=== PATIENT | female | born 1965 | race Caucasian/White ===

== ENCOUNTER 2022-11-19 12:39 | Outpatient (CLI) | payer OTHER, SELFPAY ==
[2022-11-19 14:16] LABS: Basophils Percent Auto 0.5 % (0.2-1.2); Eosinophils Absolute Auto 0.1 K/mm3 (0-0.3); Eosinophils Percent Auto 1.7 % (0-4.4); Hematocrit 43.9 % (37.0-47.0); Hemoglobin 14.4 g/dL (12.0-15.0); Immature Granulocyte Absolute 0.03 K/mm3 (0.00-0.031); Immature Granulocyte Percent A 0.4 % (0-0.5); Lymphocytes Absolute Auto 1.03 K/mm3 (0.9-3.2); Lymphocytes Percent Auto 13.4 % (18.3-44.2); Mean Corpuscular HGB Conc 32.8 g/dl (32-36); Mean Corpuscular Hemoglobin 30.3 pg (26-34); Mean Corpuscular Volume 92.2 fl (80-100); Mean Platelet Volume 12.4 fl (7.4-10.4); Monocytes Absolute Auto 0.5 K/mm3 (0.1-0.6); Monocytes Percent Auto 6.6 % (2.6-8.5); Neutrophils Absolute Auto 5.9 K/mm3 (1.3-6.7); Neutrophils Percent Auto 77.4 % (45.5-73.1); Platelet Count Result 182 k/mm3 (150-375); Red Blood Count 4.76 M/mm3 (4.2-5.4); Red Cell Distribution Width 13.2 % (11.5-14.5); White Blood Count 7.7 K/mm3 (4.5-10.0)
[2022-11-19 14:20] LABS: Appearance Urine Clear (Clear); Bacteria Urine None Seen /hpf; Bilirubin Urine Negative (Negative); Blood Urine Negative (Negative); Color Urine Yellow (Yellow); Glucose Urine UA Negative (Negative); Ketones Urine Negative (Negative); Leukocyte Esterase Ur 2+ LEU/UL (NEGATIVE); Nitrate Urine Negative (Negative); Non Pathogenic Casts 0-2; Protein Urine Negative (Negative); RBC Urine 0-2 /hpf (0-2); Specific Grav Ur 1.016 (1.001-1.035); Squamous Epithelial Cell Urine Occasional /hpf (Few); Urobilinogen Urine 0.2 mg/dL (<2.0)
[2022-11-19 14:23] LABS: Add Urine Microscopic? YES
[2022-11-19 14:26] LABS: Alanine Aminotransferase 38 U/L (6-35); Albumin Level 4.3 g/dL (3.5-5.1); Alkaline Phosphatase 75 U/L (38-126); Anion Gap 9 mmol/L (8-16); Aspartate Amino Transferase 31 U/L (14-36); Bilirubin,Total 0.5 mg/dL (0.2-1.3); Blood Urea Nitrogen 15 mg/dL (7-17); Calcium 8.9 mg/dL (8.4-10.2); Carbon Dioxide 26 mmol/L (22-30); Chloride 107 mmol/L (98-107); Cholesterol 190 mg/dL (0-200); Estimated Glomerular Filt Rate > 60; Glucose 106 mg/dL (65-110); HDL Direct 49 mg/dL; Potassium 3.8 mmol/L (3.4-5.0); Sodium 142 mmol/L (137-145); Triglycerides 149 mg/dL (<150)
[2022-11-19 14:37] LABS: LDL Cholesterol Direct 106 mg/dL
== END 2022-11-19 12:40 | disposition home or self-care (01) ==
LOC: ANHLAB 12:40
PROVIDERS: PCP Nurse Practitioner Family; Visit Provider Nurse Practitioner Family
DX: Z00.00 Encounter for general adult medical examination without abnormal findings (principal); Z13.0 Encounter for screening for diseases of the blood and blood-forming organs and certain disorders involving the immune mechanism; Z13.6 Encounter for screening for cardiovascular disorders; Z13.29 Encounter for screening for other suspected endocrine disorder
CPT/HCPCS: 36415; 80053; 80061; 81001; 84443; 85025

== ENCOUNTER 2024-06-30 13:44 | Outpatient (CLI) | payer MEDICARE, SELFPAY ==
[2024-06-30 14:33] LABS: Basophils Absolute Auto 0.1 K/mm3 (0.0-0.1); Basophils Percent Auto 0.6 % (0.2-1.2); Eosinophils Absolute Auto 0.3 K/mm3 (0-0.3); Eosinophils Percent Auto 3.3 % (0-4.4); Hematocrit 44.3 % (37.0-47.0); Hemoglobin 14.1 g/dL (12.0-15.0); Immature Granulocyte Absolute 0.03 K/mm3 (0.00-0.031); Immature Granulocyte Percent A 0.3 % (0-0.5); Lymphocytes Absolute Auto 1.78 K/mm3 (0.9-3.2); Lymphocytes Percent Auto 19.2 % (18.3-44.2); Mean Corpuscular HGB Conc 31.8 g/dl (32-36); Mean Corpuscular Hemoglobin 29.8 pg (26-34); Mean Corpuscular Volume 93.7 fl (80-100); Mean Platelet Volume 11.7 fl (7.4-10.4); Monocytes Absolute Auto 0.8 K/mm3 (0.1-0.6); Monocytes Percent Auto 8.6 % (2.6-8.5); Neutrophils Absolute Auto 6.3 K/mm3 (1.3-6.7); Platelet Count Result 171 k/mm3 (150-375); Red Blood Count 4.73 M/mm3 (4.2-5.4); Red Cell Distribution Width 13.4 % (11.5-14.5); White Blood Count 9.3 K/mm3 (4.5-10.0)
[2024-06-30 14:43] LABS: Add Urine Microscopic? YES; Appearance Urine Clear (Clear); Bacteria Urine None Seen /hpf; Bilirubin Urine Negative (Negative); Blood Urine Negative (Negative); Color Urine Yellow (Yellow); Glucose Urine UA Negative (Negative); Ketones Urine Negative (Negative); Leukocyte Esterase Ur 2+ LEU/UL (Negative); Nitrate Urine Negative (Negative); Non Pathogenic Casts 0-2; Protein Urine Negative (Negative); RBC Urine 0-2 /hpf (0-2); Specific Grav Ur 1.019 (1.001-1.035); Squamous Epithelial Cell Urine Few /hpf (Few); Urobilinogen Urine 0.2 mg/dL (<2.0)
[2024-06-30 14:47] LABS: Alanine Aminotransferase 48 U/L (6-35); Albumin Level 4.5 g/dL (3.5-5.1); Alkaline Phosphatase 87 U/L (38-126); Anion Gap 7 mmol/L (4-12); Aspartate Amino Transferase 34 U/L (14-36); Blood Urea Nitrogen 12 mg/dL (7-17); Calcium 9.2 mg/dL (8.4-10.2); Carbon Dioxide 28 mmol/L (22-30); Chloride 107 mmol/L (98-107); Cholesterol 210 mg/dL (0-200); Estimated Glomerular Filt Rate > 60; Glucose 104 mg/dL (65-110); HDL Direct 51 mg/dL; Potassium 4.1 mmol/L (3.4-5.0); Sodium 142 mmol/L (137-145); Triglycerides 114 mg/dL (<150)
[2024-06-30 14:58] LABS: LDL Cholesterol Direct 120 mg/dL
--- OUTSIDE RECORDS SUMMARY | 2024-06-30 15:21 | XMS_ITS | Patient Health Record ---
Author Organization [facility] Address [address] [facility] [facility] [place] [address] Care Team Providers Care Net Architect Name Role Phone Cayden Jett Unavailable [phone] ALLERGIES No Known Allergies REASON FOR REFERRAL No Information MEDICATIONS Medication SIG (Take, Route, Fr equency, Duration) Notes Start Date End Date Status Nasacort AQ Active Advair HFA Active Ibuprofen Active rOPINIRole HCl Activ e SOCIAL HISTORY Tobacco Use: Social History Observation Description Date Details (start date - stop date) Never Smoker NA - NA Sex Assigned At : Social History Observation Description Sex Assigned At Unknown Tobacco Use/Smoking Question Answer Notes Are you a nonsmoker PROBLEMS Problem Type ICD Code Onset Dates Problem Status W/U Status Risk SNOMED Code Notes Problem Radiculopathy, cervical region (M54.12) Active confirmed 39329150 Problem Cervical spondylosis with radiculopathy (M47.22) Active confirmed 564823155 PLAN OF TREATMENT No Information MEDICATIONS ADMINISTERED Medication Instructions Date of Administration Dosage Notes LEFT C6 SNRI 11/04/2020 MEDICAL (GENERAL) HISTORY Medical History History ICD Code migraine headaches irritable bowel syndrome esophageal reflux chronic bronchitis Surgical History Surgery Date(Month/Year) 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
--- OUTSIDE RECORDS SUMMARY | 2024-06-30 15:21 | XMS_ITS | Encounter Summary ---
Author Organization [facility] Address [facility] [place] [address] Care Team Providers Care Director Case Name Role Phone Calixto Pino MD Primary Care Provider + [phone] Maximo Cancino DO Primary Care Provider [phone] Cole Trejo MD Unavailable Quentin Avendaño MD Primary Care Provider [phone] Encounter Details Date Type Department Care Team (Late st Contact Info) Description 08/30/2018 Abstract [facility] [address] [place] [address] , Generic Conversion, Social History Tobacco Use Types Packs/Day Years Used Date Smoking Tobacco: Never Assessed AUDIT-C Answer Date Recorded Frequency of Alcohol Consumption Never 08/31/2018 Average Number of Drinks Not on file 019 Frequency of Binge Drinking Not on file 11/2018 Comments No Sex and Gender Information Value Date Recorded Sex Assigned at Not on file Legal Sex Female 4:34 PM CDT Gender Identity Not on file Sexual Orientation Not on file documented as of this encounter Functional Status documented as of this encounter Mental Status * Question Answer Entry Date Author Status Because of a physical, mental, or emotional condition, do you have serious difficulty concentrating, remembering, or making decisions? No 09/01/2018 3:46 AM CDT Tahira Eagle RN A ctive documented in this encounter Plan of Treatment Not on file documented as of this encounter Visit Diagnoses Not on filedocumented in this encounter Additional Health Concerns Infection Onset Date Last Indicated Resolved Time COVID-19 Rule Out 05/22/2020 05/22/2020 05/23/2020 3:32 PM NET DEVELOPER COVID-19 Rule Out 03/22/2024 03/22/2024 03/22/2024 9:11 AM NET DEVELOPER documented as of this encounter Care Teams Director Case Relationship Specialty Start Date End Date Calixto Pino MD PCP - General 03/17/16 08/30/18 Maximo Cancino DO PCP - General FAMILY PRACTICE 08/31/18 05/11/23 Quentin Avendaño MD [address] [place] [address] [address] [place] [address] PCP - General 05/12/23 Cole Trejo MD [address] [place] [address] [place] [id number] OB[place] 11/01/19 documented as of this encounter
--- OUTSIDE RECORDS SUMMARY | 2024-06-30 15:21 | XMS_ITS | Clinical Summary ---
Author Organization [facility] Address [address] [place] [address] Care Team Providers Care Ammunition Specialist Name Role Phone Cole Trejo MD Unavailable Quentin Avendaño MD Primary Care Provider [phone] Allergies Active Allergy Reactions Criticality Noted Date Comments Latex Rash Medium 01/11/2020 RASH Medications acetaminophen 325 MG tablet Take 1,300 mg by mouth 2 (two) times daily as needed for Pain. Active loperamide 2 MG capsule Take 2 mg by mouth 4 (four) times daily as needed for Diarrhea. Active vitamin C 500 MG tablet Take 500 mg by mouth daily. Active cholecalciferol 5000 units Tab Take 10,000 Units by mouth daily. Active betamethasone dipropionate 0.05 % cream 0.05 % daily. Active WIXELA INHUB 250-50 MCG/ACT inhalerIndications :Pulmonary emphysema, unspecified emphysema type ([facility]) INHALE 1 PUFF BY MOUTH INTO THE LUNGS TWICE DAILY 60 each 6 2 Active PANTOPRAZOLE EC 40 MG tabletIndications: Chronic GERD TAKE 1 TABLET(40 MG) BY MOUTH DAILY 90 tablet 2 2 Active albuterol sulfate HFA 108 (90 Base) MCG/ACT inhalerIndications :COPD (chronic obstructive pulmonary disease) ([facility]) 1-2 puffs q 4-6 hr prn 18 g 1 3 Active ROPINIROLE HYDROCHLORIDE 3 MG TabIndications:[facility] care maintenance Take 1 tablet by mouth nightly at bedtime. at bedtime 30 tablet 3 Active dextromethorphan-g uaiFENesin ER (MUCINEX DM) 30-600 MG TABLET SR 12 HR 12 hr tablet Take 1 tablet by mouth every 12 (twelve) hours as needed. 28 tablet 4 Active methylPREDNISolone , PINA, (MEDROL DOSEPAK) 4 MG tablet Take 1 tablet (4 mg total) by mouth daily. 6 TABLETS ON DAY ONE, 5 TABLETS DAY TWO, 4 TABLETS DAY THREE, 3 TABLETS DAY FOUR, 2 TABLETS DAY FIVE, AND 1 TABLET DAY SIX 1 each 4 Active azithromycin (ZITHROMAX) 250 MG tablet 500 mg on day 1 then 250 mg daily 6 tablet 4 Active Active Problems Problem Noted Date Diagnosed Date Dupuytren contracture 07/14/2021 Loud snoring 07/14/2021 Daytime somnolence 07/14/2021 Migraine without aura and wi thout status migrainosus, not intractable 07/14/2021 Right ovarian cyst 01/11/2020 COPD exacerbation ([facility]) 09/01/2018 Anxiety 04/29/2017 Chronic GERD 04/29/2017 COPD (chronic obstructive pu lmonary disease) ([facility]) 04/29/2017 RLS (restless legs syndrome) 04/29/2017 Sprain of finger 07/27/2010 Resolved Problems Problem Noted Date Diagnosed Date Resolved Date Routine physical examination 05/16/2020 05/23/2020 Family History Medical History Relation Comments Cancer Brother Colon Cancer Father Breast Cancer Mother Cancer Mother Relation Status Comments Brother Father Mother Social History Tobacco Use Types Packs/Day Years Used Date Smoking Tobacco: Former Cigarettes 1.5 30 1 979 - 2009 Smokeless Tobacco: Never Alcohol Use Standard Drinks/Week Comments No 0 (1 standard drink = 0.6 oz pur e alcohol) AUDIT-C Answer Date Recorded Frequency of Alcohol Consumption Never 08/31/2018 Average Number of Drinks Not on file 019 Frequency of Binge Drinking Not on file 11/2018 PHQ-2 Answer Date Recorded PHQ-2 Score - If the patient scores above 3, please move on to questions 3-9 0 07/14/2021 Comments No Sex and Gender Information Value Date Recorded Sex Assigned at Not on file Legal Sex Female 4:34 PM CDT Gender Identity Not on file Sexual Orientation Not on file Occupation Industry Job Start Date Job End Date [employer] Not on file Not on file Not on file Last Filed Vital Signs Vital Sign Reading Time Taken Comments Blood Pressure 108/62 03/22/2024 8:47 AM WAIST PRESSER Pulse 88 03/22/2024 8:47 AM WAIST PRESSER Temperature 36.9 C (98.5 F) 03/22/2024 8:45 AM WAIST PRESSER Respiratory Rate 18 03/22/2024 8:45 AM WAIST PRESSER Oxygen Saturation 93% 03/22/2024 8:47 AM WAIST PRESSER Inhaled Oxygen Concentration - - Weight 78.5 kg (173 lb) 03/22/2024 8:45 AM WAIST PRESSER Height 160 cm (5' 3 ) 03/22/2024 8:45 AM WAIST PRESSER Body Mass Index 30.65 03/22/2024 8:45 AM WAIST PRESSER Plan of Treatment Health Maintenance Due Date Last Done Comments Cervical Cancer Screening Pap Smear (Age 30 to 64) Every 3 Years 1966 Pneumococcal Vaccine: Pediatrics (0 to 5 Years) and At-Risk Patients (6 to 64 Years) (1 of 2 - PCV) 1972 Hepatitis C 1984 DTaP, Tdap and Td Vaccines (1 - Tdap) 1985 Hepatitis B Vaccines (1 of 3 - 19+ 3-dose series) 1985 Cervical Cancer Screening Pap with HPV Testing (Age 30 to 64) Every 5 Years 1996 Cervical Cancer Screening with HPV 1996 Zoster Vaccines (1 of 2) 2016 Annual Physical 07/14/2022 07/14/2021, 04/26, 05/11/2019 COVID-19 Vaccine ( season) 2023 11/19/2020, 10/22/2020 Mammogram Screening 05/13/2025 05/13/2023, 01/17/2021, 09/21/2019, Additional history exists Colorectal Cancer Screening Colonoscopy (10 Years) 05/25/2030 05/25/2020, 05/25/2020, 03/25/2013 Meningococcal B Vaccine Aged Out No l onger eligible based on patient's age to complete this topic Meningococcal Vaccine Aged Out No rochelle deya eligible based on patient's age to complete this topic RSV Immunizations Under 20 Months Aged Out No longer eligible based on patient's age to complete this topic Procedures Procedure Name Priority Date/Time Associated Diagnosis Comments MG SCREENING W JOSELIN LOVE DIGI Routine 05/13/2023 2:16 PM WAIST PRESSER Visit for screening mammogram COLONOSCOPY Routine 05/25/2020 8:19 AM WAIST PRESSER from Last 3 Months or Most Recently Relevant to Health Maintenance Results * MG SCREENING W JOSELIN LOVE DIGI (05/13/2023 2:16 PM WAIST PRESSER) Anatomical Region Laterality Modality Breast Bilateral Mammography 05/13/2023 2:20 PM WAIST PRESSER Narrative 05/13/2023 2:22 PM WAIST PRESSER Examination: Digital bilateral screening mammogram with 3D Tomosynthesis Exam Date/Time: 05/13/2023 1:57 PM Reason For Exam: annual 2 prior benign biopsies of both breasts and 2010. Breast cancer in mother at age 49. No personal history of breast cancer. No current complaints. Comparison: Mammograms from 01/17/2021 09/21/2019 05/24/2018 Technique: Digital screening mammography of both breasts was performed in addition to 3-D Tomosynthesis technique. This study was read with the assistance of a computer-aided detection system. Tissue density: There are scattered areas of fibroglandular density. Findings: Biopsy marker on the right. Overall parenchymal pattern unchanged from prior studies. There is no new focal asymmetry, dominant mass lesion, area of skin thickening, or cluster of suspicious appearing calcifications in either breast to suggest malignancy. ===== IMPRESSION: ===== 1. Stable mammographic appearance with no new findings to suggest malignancy in either breast. Assessment: ACR BI-RADS 2 - BENIGN FINDING(S) Recommendation: 1:Routine Screening Bilateral Comments: Ordered By: SUSAN STOKES Interpreted By: Joselito Nair MD, 05/13/2023 2:20 PM Susan Stokes APNP MAMMO Final Result * Colonoscopy (05/25/2020 8:19 AM WAIST PRESSER) Narrative Pal Hatfield MD - 05/25/2020 8:19 AM WAIST PRESSER Pal Hatfield MD 05/25/2020 9:42 AM PAL HATFIELD MD, FACG, FACP COLONOSCOPY INDICATION: Screening for colon cancer/Family history of colon cancer. POST-OP: Normal. SEDATION: Per Anesthesia PREP: Good. BOTTLE CAPPER: Dr. Do Waters With the patient in the left lateral decubitus position, the Olympus [id number] colonoscope was introduced into the rectum and advanced easily to the cecum identified by ileocecal valve, appendiceal orifice and cecal strap. Careful inspection of the mucosa was made upon insertion and withdrawal of the endoscope. FINDINGS: Cecum, ascending colon, transverse colon, descending colon, sigmoid colon and rectum including retroflexion normal. No masses, polyps, AVMs, colitis or diverticulosis seen. No complications, blood loss or implants. ASSESSMENT AND PLAN: Screening for colon cancer/Family history of colon cancer: - Normal colonoscopy - I will place in our recall for repeat colonoscopy in 5 years Thank you for allowing me to care for your patient. She will follow-up with Dr. Cancino as needed. Pal Hatfield M.D. Pal Hatfield MD GI PROCEDURE ORDERABLES Fin al Result from Last 3 Months or Most Recently Relevant to Health Maintenance Insurance [employer] Advance Directives * Full Code (Latest Code Status on File) Date Activated Date Inactivated Comments 09/01/2018 1:26 AM 09/01/2018 7:30 PM Care Teams Ammunition Specialist Relationship Specialty Start Date End Date Quentin Avendaño MD [address] [place] [address] [address] [place] [address] PCP - General 05/12/23 Cole Trejo MD [address] [facility] [address] [address] OBGYN 11/01/19
--- OUTSIDE RECORDS SUMMARY | 2024-06-30 15:21 | XMS_ITS | Continuity of Care Document ---
Author Name Rani Lay Address [address] [facility] [place] [address] Organization Unknown Address [address] [place] [address] [address] [place] [address] Medications No known medications Problems No known problems
--- OUTSIDE RECORDS SUMMARY | 2024-06-30 15:21 | XMS_ITS | Encounter Summary ---
Author Organization [facility] Care Team Providers Care Refrigerator Car Icer Name Role Phone No, Physician Primary Care Provider [phone] Maximo Cancino DO Primary Care Provider Encounter Details Date Type Department Care Team (Latest Contact Info) Description 01/17/2015 Orders Only [facility] CLINCONV Provider, MD Reagan [address] [place] [id number] Social History Tobacco Use Types Packs/Day Years Used Date Smoking Tobacco: Former Comments Unknown Sex and Gender Information Value Date Recorded Sex Assigned at Not on file Legal Sex Female 8:35 AM GAME BIRD FARMER Gender Identity Not on file Sexual Orientation Not on file documented as of this encounter Plan of Treatment Not on file documented as of this encounter Procedures Procedure Name Priority Date/Time Associated Diagnosis Comments SCAN - LABS 01/25/2015 12:00 AM GAME BIRD FARMER documented in this encounter Results * SCAN - LABS (01/25/2015 12:00 AM GAME BIRD FARMER) Narrative 01/25/2015 12:00 AM GAME BIRD FARMER Ordered by an unspecified provider. us Historical Provider Final Res ult documented in this encounter Visit Diagnoses Not on filedocumented in this encounter Care Teams Refrigerator Car Icer Relationship Specialty Start Date End Date No, Physician PCP - General 03/05/18 01/10/20 Maximo Cancino DO PCP - General Family Practice 01/11/20 documented as of this encounter
--- OUTSIDE RECORDS SUMMARY | 2024-06-30 15:21 | XMS_ITS | Clinical Summary ---
Author Organization [facility] Care Team Providers Care Experimental Electronics Developer Name Role Phone Unavailable Primary Care Provider Unavailabl e Social History Tobacco Use Types Packs/Day Years Used Date Smoking Tobacco: Never Assessed Comments Unknown Sex and Gender Information Value Date Recorded Sex Assigned at Not on file Legal Sex Female 12:08 PM SPECIAL EDUCATION PROFESSOR Gender Identity Not on file Sexual Orientation Not on file Plan of Treatment Health Maintenance Due Date Last Done Comments Hepatitis C Virus (HCV) Screening 1966 TdaP Immunization 1966 Hepatitis B Immunization (1 of 3 - 19+ 3-dose series) 1985 Pap Smear 07/31/1987 Cervical Cancer Screening (CCS) 1996 HPV/Cotest 1996 Colonoscopy 07/31/2011 Colorectal Cancer Screening 07/31/2011 Cologuard 2016 Immunochemical Fecal Occult Blood 2016 Mammogram 2016 Pneumococcal Immunization (5 0+ years) (1 of 1 - PCV) 2016 Zoster Immunization (1 of 2) 2016 Influenza Immunization (#1) 2023 SARS-COV-2 Immunization (2023- season) 2023 11/19/2020, 10/22/2020 Respiratory Syncytial Virus (RSV) Immunization (Adult) (1 - 1-dose 75+ series) 2041 Meningococcal Immunization (ACWY) Aged Out No longer eligible b ased on patient's age to complete this topic Pneumococcal Immunization Combined Aged Out No longer eligible b ased on patient's age to complete this topic Rotavirus Immunization Aged Out No lo nger eligible based on patient's age to complete this topic
--- OUTSIDE RECORDS SUMMARY | 2024-06-30 15:22 | XMS_ITS | Clinical Summary ---
Author Organization [place] [id number] [facility] Address [address] [place] [address] Care Team Providers Care Product Marketing Engineer Name Role Phone Maximo Cancino Primary Care Provider Allergies Active Allergy Reactions Criticality Noted Date Comments Latex Rash Medium 01/11/2020 RASH Medications triamcinolone (NASACORT) 55 mcg nasal inhaler daily Active rOPINIRole (REQUIP) 3 mg tablet TK 1 T PO QHS [address] (PROTONIX) 40 mg EC tablet 0 Active methocarbamoL (ROBAXIN) 500 mg tablet 0 Active Advair Diskus 250-50 mcg/dose diskus inhaler INL 1 PUFF PO ITL BID [address] (VOLTAREN) 75 mg EC tablet TK 1 T PO BID 0 Active cholecalciferol (VITAMIN D-3) 5,000 unit tablet Take 10,000 Units by mouth daily Active betamethasone dipropionate (DEL-BETA) 0.05 % cream 0.05 % daily Active ascorbic acid (VITAMIN C) 500 mg tablet,chewable Take 500 mg by mouth daily Active albuterol HFA (PROVENTIL HFA,VENTOLIN HFA,PROAIR HFA) 90 mcg/actuation inhaler INHALE 1 TO 2 PUFFS BY MOUTH EVERY 4 TO 6 HOURS NEEDED 9 Active predniSONE (DELTASONE) 20 mg tablet TAKE 2 TABLETS BY MOUTH ONCE PER DAY FOR 5 DAYS 1 Active oxyCODONE-acetami nophen (PERCOCET) 5-325 mg per tablet TAKE 1 TO 2 TABLETS BY MOUTH EVERY 4 TO 6 HOURS 1 Active doxycycline hyclate 100 mg capsule TAKE 1 CAPSULE BY MOUTH TWICE DAILY FOR 10 DAYS 1 Active Stool Softener 100 mg capsule Take 100 mg by mouth 2 (two) times a day 1 Active cyclobenzaprine (FLEXERIL) 10 mg tablet Take 10 mg by mouth 3 (three) times a day as needed for muscle spasms 1 Active benzonatate (TESSALON) 100 mg capsule TAKE 2 CAPSULES BY MOUTH THREE TIMES DAILY FOR 7 DAYS 1 Active estradioL (ESTRACE) 0.01 % (0.1 mg/gram) vaginal creamIndications: Vaginal dryness, menopausal Insert 1/2 - 1 gram nightly vaginally for 2 weeks, then every 2-4 days to control symptoms 42.5 g 5 2 Active Active Problems Problem Noted Date Diagnosed Date Pneumonia of right lower lobe due to infectious organism 02/23/2021 Right ovarian cyst 01/11/2020 Sprain of finger 07/27/2010 Surgical History Surgery Date Site/Laterality Comments SPINAL FUSION 12/14/2020 Family History Medical History Relation Name Comments Breast cancer Mother Relation Name Status Comments Mother Other at age 49 Social History Tobacco Use Types Packs/Day Years Used Date Smoking Tobacco: Former Alcohol Use Standard Drinks/Week Comments Never 0 (1 standard drink = 0.6 oz pur e alcohol) AUDIT-C Answer Date Recorded Q1: How often do you have a drink containing alc ohol? Never 01/11/2020 Average Number of Drinks Not on file 020 Frequency of Binge Drinking Not on file 12/23 Personal Safety Answer Date Recorded Have you ever been in or are you currently in a harmful physical or emotional relationship or is someone making you feel afraid or unsafe? Denies 04/26/2023 Comments No Sex and Gender Information Value Date Recorded Sex Assigned at Not on file Legal Sex Female 8:35 AM PATIENT COMPANION Gender Identity Not on file Sexual Orientation Not on file Obstetrics History Para Term AB IAB SAB Ectopic Multiple Livin g Live Births 1 Date Outcome GA Total Labor Labor/2nd/3rd Weight Sex Type Anes PTL Radha A1 A5 Name Clin Term Last Filed Vital Signs Vital Sign Reading Time Taken Comments Blood Pressure 115/79 04/26/2023 1:10 PM PATIENT COMPANION Pulse 80 04/26/2023 1:10 PM PATIENT COMPANION Temperature 36.9 C (98.4 F) 04/26/2023 5:45 AM PATIENT COMPANION Respiratory Rate 17 04/26/2023 1:10 PM PATIENT COMPANION Oxygen Saturation 99% 04/26/2023 1:10 PM PATIENT COMPANION Inhaled Oxygen Concentration - - Weight 79 kg (174 lb 2.6 oz) 04/26/2023 5:45 AM PATIENT COMPANION Height 160 cm (5' 2.99 ) 04/26/2023 5:45 AM PATIENT COMPANION Body Mass Index 30.86 04/26/2023 5:45 AM PATIENT COMPANION Plan of Treatment Health Maintenance Due Date Last Done Comments Breast Cancer Screening-Mammogram 1965 Colon Cancer Screening-Colonoscopy 1965 Depression Screening 1965 Hepatitis C Screening 1966 DTaP/Tdap/Td Vaccine (1 - Tdap) 1977 Hepatitis B Screening 1984 Pneumococcal vaccine <65 (1 of 2 - PCV) 1985 Zoster Vaccine (1 of 2) 2016 Cervical Cancer Screening 01/10/2021 01/11/2020, Regular Well Visit/Exam 18-64 02/23/2022 02/23/2021, 01/11/2020 Covid-19 Vaccine ( season) 2023, 10/22/2020 Influenza Vaccine (#1) 2023 Procedures Procedure Name Priority Date/Time Associated Diagnosis Comments THINPREP PAP WITH HPV Routine 01/11/2020 12:01 AM CDT Encounter for gynecological examination from Last 3 Months or Most Recently Relevant to Health Maintenance Results * ThinPrep Pap with HPV (01/11/2020 12:01 AM CDT) 01/11/2020 12:0 1 AM CDT 01/13/2020 1:03 PM CDT [facility] - 01/18/2020 12:52 PM CDT [facility] Department of Pathology [address] [place] [id number] Final Report with Addendum Patient Name: BENJA FULLER Address: [address], [place], [place] Gender: F : 1965 (Age: 54) Service: Laboratory Location: Lab Hospital #: [id number] Patient Type: Ref Lab Taken: 01/11/2020 Received: 01/13/2020 Accessioned:: 01/14/2020 Reported: 01/18/2020 Physician(s): Dr. Cole Trejo M.D. [facility] Diagnosis: Source of Specimen: Screening ThinPrep Imaged Pap w/HPV Specimen Adequacy: - Specimen satisfactory for interpretation; endocervical/transformation zone component absent or insufficient General Category: - Negative for intraepithelial lesion or malignancy ARTEM Craig(ASCP) Report Electronically Reviewed and Signed Out By ARTEM Craig(ASCP) 01/18/2020 12:52:13 Addenda: HPV Test Interpretation NEGATIVE for types 16, 18, 31, 33, 35, 39, 45, 51, 52, 56, 58, 59, 66 and 68. Test performed utilizing Gen-Probe Aptima assay. ARTEM Craig(ASCP) Report Electronically Reviewed and Signed Out By ARTEM Craig(ASCP) 01/15/2020 10:00:46 Specimen(s) Received: A: Screening ThinPrep Imaged Pap w/HPV Clinical History: Last Menstrual Period: 08/2019 The Pap test is a screening test used to aid in the detection of cervical cancer and its precursors. It should not be the sole means by which malignant and premalignant lesions are diagnosed. Both false negative and false positive results may occur. It also has poor sensitivity for the detection of endometrial lesions and should not be used to evaluate suspected endometrial abnormalities. For these reasons it is most important to obtain Pap tests at regular intervals. The performance characteristics of some immunohistochemical stains, fluorescence in-situ hybridization tests and immunophenotyping by flow cytometry cited in this report (if any) were determined by the Surgical Pathology Department at [facility] as part of an ongoing quality control microbiology supervisor program and in compliance with federally mandated regulations drawn from the Clinical Laboratory Improvement Act of 1988 (CLIA '88). Some of these tests rely on the use of analyte specific reagents and are subject to specific labeling requirements by the US Food and Drug Administration. Such diagnostic tests may only be performed in a facility that is certified by the Department of Health and Human Services as a high complexity laboratory under CLIA '88. The FDA has determined that such clearance or approval is not necessary. This test is used for clinical purposes. It should not be regarded as investigational or for research. Nevertheless, federal rules concerning the medical use of analyte specific reagents require that the following disclaimer be attached to the report: This test was developed and its performance characteristics determined by the Surgical Pathology Department [facility]. It has not been cleared or approved by the U. S. Food and Drug Administration. Cole Trejo MD LAB CYTOLOGY ORDERABLES Fi nal Result Performing Organization Address City/State/[facility] Co de Phone Number [address] [phone] from Last 3 Months or Most Recently Relevant to Health Maintenance Insurance [facility] [employer] [facility] [place] [facility] [employer] [place] Care Teams Product Marketing Engineer Relationship Specialty Start Date End Date Maximo Cancino DO PCP - General Family Practice 01/11/20
--- OUTSIDE RECORDS SUMMARY | 2024-06-30 15:22 | XMS_ITS | Continuity of Care Document ---
Author Name Jennifer Kessler Address [address] [facility] [place] [address] Organization Unknown Address [address] [place], [place] [id number] [place] [address] Medications No known medications Problems No known problems
--- OUTSIDE RECORDS SUMMARY | 2024-06-30 15:22 | XMS_ITS | Referral Summary ---
Author Organization [place] [id number] [facility] Address [address] [place] [address] Care Team Providers Care Chief Learning Officer Name Role Phone Maximo Cancino Primary Care [...] ovarian cyst 01/11/2020 Sprain of finger 07/27/2010 Social History Tobacco Use Types Packs/Day Years [...] on file Legal Sex Female 8:35 AM JUVENILE OFFICER Gender Identity Not on file Sexual Orientation Not on file Last Filed Vital Signs Vital Sign Reading Time Taken Comments Blood Pressure 115/79 04/26/2023 1:10 PM JUVENILE OFFICER Pulse 80 04/26/2023 1:10 PM JUVENILE OFFICER Temperature 36.9 C (98.4 F) 04/26/2023 5:45 AM JUVENILE OFFICER Respiratory Rate 17 04/26/2023 1:10 PM JUVENILE OFFICER Oxygen Saturation 99% 04/26/2023 1:10 PM JUVENILE OFFICER Inhaled Oxygen Concentration - - Weight 79 kg (174 lb 2.6 oz) 04/26/2023 5:45 AM JUVENILE OFFICER Height 160 cm (5' 2.99 ) 04/26/2023 5:45 AM JUVENILE OFFICER Body Mass Index 30.86 04/26/2023 5:45 AM JUVENILE OFFICER Plan of Treatment Not on file Procedures Procedure Name Priority Date/Time Associated Diagnosis Comments THINPREP PAP WITH HPV Routine 01/11/2020 12:01 AM CDT Encounter for gynecological examination from Last 3 Months or Most Recently Relevant to Health Maintenance Results * ThinPrep Pap with HPV (01/11/2020 12:01 AM CDT) 01/11/2020 12:0 1 AM CDT 01/13/2020 1:03 PM CDT [facility] - 01/18/2020 12:52 PM CDT [facility] Department of Pathology [address] [place], [place] [id number] Final Report with Addendum Patient Name: BENJA FULLER Address: [address] [place] [address] Gender: F : 1965 (Age: 54) Service: Laboratory Location: Lab Hospital #: [id number] Patient Type: Ref Lab Taken: 01/11/2020 Received: 01/13/2020 Accessioned:: 01/14/2020 Reported: 01/18/2020 Physician(s): Dr. Cole Trejo M.D. [facility] Diagnosis: Source of Specimen: Screening ThinPrep Imaged [...] determined by the Surgical Pathology Department at [facility] as part of an ongoing quality specialist program and in compliance with federally mandated [...] characteristics determined by the Surgical Pathology Department [facility]. It has not been cleared or approved by the U. S. Food and Drug Administration. Cole Trejo MD LAB CYTOLOGY ORDERABLES Fi nal Result [address] [phone] from Last 3 Months or Most Recently Relevant to Health Maintenance Insurance [facility] [employer] [facility] [employer] [place] [employer] [place] [facility] [employer] [place] Care Teams Chief Learning Officer Relationship Specialty Start Date End Date Maximo Cancino DO PCP - General Family Practice 01/11/20
--- OUTSIDE RECORDS SUMMARY | 2024-06-30 15:22 | XMS_ITS | Encounter Summary ---
Author Organization [facility] Facility Care Team Providers Care Security Operations Center Analyst Name Role Phone No, Physician Primary Care Provider [phone] Maximo Cancino DO Primary Care Provider Encounter Details Date Type Department Care Team (Latest Contact Info) Description 03/13/2018 Orders Only [facility] CLINCONV Provider, MD Reagan [address] [place] [address] Social History Tobacco Use Types Packs/Day Years Used Date Smoking Tobacco: Former Comments Unknown Sex and Gender Information Value Date Recorded Sex Assigned at Not on file Legal Sex Female 8:35 AM HITCHER Gender Identity Not on file Sexual Orientation Not on file documented as of this encounter Plan of Treatment Not on file documented as of this encounter Procedures Procedure Name Priority Date/Time Associated Diagnosis Comments SCAN - LABS 03/13/2018 12:00 AM HITCHER documented in this encounter Results * SCAN - LABS (03/13/2018 12:00 AM HITCHER) Narrative 03/13/2018 12:00 AM HITCHER Ordered by an unspecified provider. us Historical Provider Final Res ult documented in this encounter Visit Diagnoses Not on filedocumented in this encounter Care Teams Security Operations Center Analyst Relationship Specialty Start Date End Date No, Physician PCP - General 03/05/18 01/10/20 Maximo Cancino DO PCP - General Family Practice 01/11/20 documented as of this encounter
--- OUTSIDE RECORDS SUMMARY | 2024-06-30 15:22 | XMS_ITS | Encounter Summary ---
Author Organization [facility] Facility Care Team Providers Care Investigator Fraud Name Role Phone No, Physician Primary Care Provider [phone] Maximo Cancino DO Primary Care Provider Encounter Details Date Type Department Care Team (Latest Contact Info) Description 02/28/2018 Orders Only [facility] CLINCONV ProviderReagan MD [address] [place] [address] Social History Tobacco Use Types Packs/Day Years Used Date Smoking Tobacco: Former Comments Unknown Sex and Gender Information Value Date Recorded Sex Assigned at Not on file Legal Sex Female 8:35 AM WIG DRESSER Gender Identity Not on file Sexual Orientation Not on file documented as of this encounter Plan of Treatment Not on file documented as of this encounter Procedures Procedure Name Priority Date/Time Associated Diagnosis Comments PROCEDURE - RESULT 02/28/2018 12 :00 AM WIG DRESSER documented in this encounter Results * PROCEDURE - RESULT (02/28/2018 12:00 AM WIG DRESSER) Narrative 02/28/2018 12:00 AM WIG DRESSER Ordered by an unspecified provider. us Historical Provider Final Res ult documented in this encounter Visit Diagnoses Not on filedocumented in this encounter Care Teams Investigator Fraud Relationship Specialty Start Date End Date No, Physician PCP - General 03/05/18 01/10/20 Maximo Cancino DO PCP - General Family Practice 01/11/20 documented as of this encounter
[2024-06-30 15:26] LABS: Thyroid Stimulating Hormone Reflex 0.731 uIU/mL (0.465-4.68)
== END 2024-06-30 13:45 | disposition home or self-care (01) ==
PROVIDERS: PCP Nurse Practitioner Family; Visit Provider Nurse Practitioner Family
DX: F41.9 Anxiety disorder, unspecified (principal); Z13.6 Encounter for screening for cardiovascular disorders; Z13.0 Encounter for screening for diseases of the blood and blood-forming organs and certain disorders involving the immune mechanism; Z13.29 Encounter for screening for other suspected endocrine disorder
CPT/HCPCS: 36415; 80053; 80061; 81001; 84443; 85025